=== PATIENT | male | born 1960 | race Caucasian/White ===

== ENCOUNTER 2020-07-06 12:20 | Inpatient (IN) | payer OTHER ==
[~2020-07-06] VITALS: Ht 172.7 cm; Wt 134.3 kg
[~2020-07-06 12:20] MED LIST: IBUP400 PO; METO25 PO
[2020-07-06 12:46] LABS: BASOPHILS ABSOLUTE AUTO 0.04 K/mm3 (0.00-0.23); BASOPHILS PERCENT AUTO 1 % (0-2); EOSINOPHILS ABSOLUTE AUTO 0.02 K/mm3 (0.00-0.68); EOSINOPHILS PERCENT AUTO 0 % (0-6); Hematocrit 46.7 % (37.0-53.0); Hemoglobin 15.3 g/dL (13.5-17.5); IMMATURE GRAN ABSOLUTE AUTO 0.03 K/mm3 (0.00-0.10); IMMATURE GRAN PERCENT AUTO 0 % (0-1); LYMPHOCYTES ABSOLUTE AUTO 1.29 K/mm3 (0.84-5.20); LYMPHOCYTES PERCENT AUTO 16 % (21-46); MONOCYTES ABSOLUTE AUTO 0.83 K/mm3 (0.16-1.47); MONOCYTES PERCENT AUTO 10 % (4-13); Mean Corpuscular HGB 30.9 pg (26.0-34.0); Mean Corpuscular HGB Conc 32.8 g/dL (31.5-36.5); Mean Corpuscular Volume 94 fL (80-100); Mean Platelet Volume 10.7 fL (9.1-12.4); NEUTROPHILS ABSOLUTE AUTO 6.13 K/mm3 (1.96-9.15); NEUTROPHILS PERCENT AUTO 73 % (41-73); Platelet Count 149 K/mm3 (150-400); RDW Coefficient Variation 12.5 % (11.7-14.2); RDW Standard Deviation 43.5 fL (35.1-46.3); Red Blood Cell Count 4.95 M/mm3 (4.30-5.90); White Blood Cell Count 8.34 K/mm3 (4.00-11.30)
[2020-07-06 13:07] LABS: Alanine Aminotransfer (ALT/SGP 37 U/L (12-78); Albumin, Blood 3.2 g/dL (3.4-5.0); Albumin/Globulin Ratio 0.7 (0.8-1.8); Alk Phos 73 U/L (50-136); Anion Gap 3 mmol/L (6-16); Aspartate Aminotrans (AST/SGOT 41 U/L (12-37); Bilirubin, Total 1.4 mg/dL (0.1-1.0); Blood Urea Nitrogen 10 mg/dL (8-24); Bun/Creatinine Ratio 12.3 (12.0-20.0); CO2, Blood 32 mmol/L (21-32); Calcium, Blood 9.3 mg/dL (8.5-10.1); Chloride, Blood 100 mmol/L (98-108); Creatinine, Blood 0.81 mg/dL (0.60-1.20); Globulin, Blood 4.4 g/dL (2.2-4.0); Glomerular Filtration Rate >60 (60-); Glucose, Blood 92 mg/dL (70-99); Potassium, Blood 3.9 mmol/L (3.5-5.5); Sodium, Blood 135 mmol/L (136-145); Total Protein, Blood 7.6 g/dL (6.4-8.2)
[2020-07-06 13:57] LABS: Source, Urine Clean Catch
[2020-07-06] MEDS ORDERED: ALLO100 PO (14:07)
[2020-07-06] MEDS ORDERED: Vitamin D2000 UNIT PO (14:09)
[2020-07-06] MEDS ORDERED: AMLO10 PO (14:09)
[2020-07-06] MEDS ORDERED: TAMS.4ER PO (14:09)
[2020-07-06] MEDS ORDERED: TIZA4 PO (14:10)
[2020-07-06] MEDS ORDERED: LISI20 PO (14:10)
[2020-07-06] MEDS ORDERED: FURO20 PO (14:11)
[2020-07-06] MEDS ORDERED: POTA10T PO (14:11)
[2020-07-06 14:12] LABS: Blood, Urine Neg (Neg); Glucose Qualitative, Urine Neg (Neg); Ketones, Urine Neg (Neg); Leukocyte Esterase, Urine 1+ (Neg); Nitrite, Urine Neg (Neg); Protein, Urine 1+ (Neg); Specific Gravity, Urine 1.015 (1.003-1.022); Urobilinogen, Urine 4+ (Normal); pH, Urine 6.5 (5.0-8.0)
[2020-07-06 14:21] LABS: Appearance, Urine Clear (Clear); Bilirubin, Urine 1+ (Neg); Color, Urine Amber (P-Yellow)
[2020-07-06 14:22] LABS: Bacteria Few /hpf; Mucus Light (0-Heavy); Red Blood Cells, Urine 0-2 /hpf (0-2); Squamous Epithelial Cells Few /hpf (Few)
[2020-07-06 16:30] LABS: International Normalized Ratio 1.08; Prothrombin Time Results 11.5 Sec (9.7-11.5)
[2020-07-06] MEDS ORDERED: METOPROLOL SUCC25 MG PO (17:36)
[2020-07-06] MEDS ORDERED: FUROSEMIDE40 MG PO (17:37)
[2020-07-06 17:53] LABS: Body Fluid WBC Count 420 /mm3 (0-999)
[2020-07-06 19:03] LABS: RBC Count, Body Fluid 31 /mm3 (0-0)
[2020-07-06 19:04] LABS: Appearance, Body Fluid Clear (Clear); Color, Body Fluid Yellow (None-Yellow)
[2020-07-06 19:23] LABS: Total Cell Count, Body Fluid 100
[2020-07-07 05:13] LABS: Alanine Aminotransfer (ALT/SGP 36 U/L (12-78); Albumin/Globulin Ratio 0.8 (0.8-1.8); Alk Phos 61 U/L (50-136); Anion Gap 3 mmol/L (6-16); Aspartate Aminotrans (AST/SGOT 34 U/L (12-37); Bilirubin, Total 1.2 mg/dL (0.1-1.0); Blood Urea Nitrogen 9 mg/dL (8-24); Bun/Creatinine Ratio 12.7 (12.0-20.0); CO2, Blood 30 mmol/L (21-32); Chloride, Blood 101 mmol/L (98-108); Creatinine, Blood 0.71 mg/dL (0.60-1.20); Globulin, Blood 3.7 g/dL (2.2-4.0); Glomerular Filtration Rate >60 (60-); Glucose, Blood 129 mg/dL (70-99); Potassium, Blood 3.9 mmol/L (3.5-5.5); Sodium, Blood 134 mmol/L (136-145); Total Protein, Blood 6.7 g/dL (6.4-8.2)
--- NOTE | 2020-07-07 06:11 | NUR ---
SHIFT SUMMARY PT ARRIVED TO UNIT FROM ED VIA STRETCHER @ 1935. TRANSFERED FROM STRETCHER TO BATHROOM SBA. MEDICATED X2 FOR PAIN. PT SLEPT T/O NIGHT WITH NO ACUTE CHANGES. EXPRESSES SOME ANXIOUSNESS FOR PENDING PROCEDURE. A&O X4. USES CALL LIGHT APPROPRIATELY. PT IS CURRENTLY LAYING IN BED, EYES CLOSED, EVEN AND UNLABORED RESPIRATIONS. NO APPARENT DISREESS OR NEEDS AT THIS TIME. CALL LIGHT AND PERSONAL ITEMS WITHIN REACH. BED IN LOWERED POSITION, BED ALARM ON. WILL CONTINUE TO MONITOR UNTIL REPORT GIVEN TO DAY RN.
[2020-07-07 06:49] LABS: BASOPHILS ABSOLUTE AUTO 0.03 K/mm3 (0.00-0.23); BASOPHILS PERCENT AUTO 1 % (0-2); EOSINOPHILS ABSOLUTE AUTO 0.02 K/mm3 (0.00-0.68); EOSINOPHILS PERCENT AUTO 0 % (0-6); Hemoglobin 14.7 g/dL (13.5-17.5); IMMATURE GRAN ABSOLUTE AUTO 0.02 K/mm3 (0.00-0.10); IMMATURE GRAN PERCENT AUTO 0 % (0-1); LYMPHOCYTES ABSOLUTE AUTO 1.03 K/mm3 (0.84-5.20); LYMPHOCYTES PERCENT AUTO 16 % (21-46); MONOCYTES ABSOLUTE AUTO 0.53 K/mm3 (0.16-1.47); MONOCYTES PERCENT AUTO 8 % (4-13); Mean Corpuscular HGB 30.4 pg (26.0-34.0); Mean Corpuscular HGB Conc 32.7 g/dL (31.5-36.5); Mean Corpuscular Volume 93 fL (80-100); Mean Platelet Volume 10.9 fL (9.1-12.4); NEUTROPHILS ABSOLUTE AUTO 4.69 K/mm3 (1.96-9.15); NEUTROPHILS PERCENT AUTO 74 % (41-73); Platelet Count 121 K/mm3 (150-400); RDW Coefficient Variation 12.5 % (11.7-14.2); RDW Standard Deviation 43.3 fL (35.1-46.3); Red Blood Cell Count 4.83 M/mm3 (4.30-5.90); White Blood Cell Count 6.32 K/mm3 (4.00-11.30)
[2020-07-07 15:56] LABS: Automated BF WBC Count 0.487 K/mm3 (0-999); Body Fluid WBC Count 487 /mm3 (0-999)
[2020-07-07 16:24] LABS: Appearance, Body Fluid Clear (Clear); Color, Body Fluid Yellow (None-Yellow); RBC Count, Body Fluid 73 /mm3 (0-0)
[2020-07-07 16:31] LABS: Total Cell Count, Body Fluid 100
--- NOTE | 2020-07-07 18:07 | NUR ---
Shift Summary A/Ox4, pleasant and cooperative with care. Up in room independently, calls for needs appropriately. Had paracentesis today for which 4L was removed, bodily fluid sent in for culture. Heparin has been held today and will be held again tomorrow for another scheduled paracentesis. Medicated for lower back/nerve pain x 2 with excellent relief. K-pad for hot therapy also applied to back. No other complaints or concerns, will continue to monitor.
--- NOTE | 2020-07-08 04:06 | NUR ---
SHIFT SUMMARY ASSUMED CARE OF PT AT 1900. PT C/O PAIN IN HIS BACK AND ABD, MEDICATED PER EMAR. PT THINKS THAT HIS DOSE OF FLEXERAL SHOULD BE INCREASED BECAUSE HE SAID HE TAKES 10MG AT HOME. ABD IS DISTENDED AND PT STATES IT HURTS. PT HAS HAD TWO EPISODES OF DIARRHEA, PT THINKS IT COULD BE FROM THE METFORMIN. PT ALSO C/O DYSPNEA DUE TO ABD SIZE. THERE IS DISCOLORATION AROUND THE PTS UMBILICAL, PT STATES HAS A HERNIA BUT IT IS IMPROVING AFTER THE PARACENTESIS. PT HAS TWO PUNCTURE DEJESUS FROM PREVIOUS PARACENTENSIS ON THE R SIDE OF HIS ABD. NO ACUTE EVENTS DURING THE NIHGT. PT SLEPT MOST OF THE NIGHT. CALL LIGHT IN REACH, BED IN LOWEST POSTION.
[2020-07-08] MEDS ORDERED: METF500 PO (12:59)
[2020-07-08] MEDS ORDERED: SPIR50 PO (13:00)
--- NOTE | 2020-07-08 17:44 | NUR ---
Discharge Summary A/Ox4, paracentesis completed today with 4L removed and albumin given prior to discharge. Reviewed discharge paperwork with patient, no questions at this time. Meds faxed to preferred pharmacy. Personal belongings sent home with patient. Escorted by CAR [employer]PER via w/c, personal transportation home. IV removed, WNL. Medicated for pain per emar with good relief, tolerated paracentesis well today.
== END 2020-07-08 17:47 | disposition home or self-care (01) | DRG 433 ==
LOC: ER 12:20 → MEDS 12:21 → ENPENDDIS 07-08 14:11 → MEDS 07-08 17:47
PROVIDERS: Emergency Medicine; Internal Medicine; ADMIT Internal Medicine
PROC: 0W9G3ZZ Drainage of Peritoneal Cavity, Percutaneous Approach (ICD-10-PCS; principal; 2020-07-08)
DX: K74.60 Unspecified cirrhosis of liver (principal); R18.8 Other ascites; I10 Essential (primary) hypertension; R06.00 Dyspnea, unspecified; M10.9 Gout, unspecified; F32.9 Major depressive disorder, single episode, unspecified; E11.9 Type 2 diabetes mellitus without complications; Z87.891 Personal history of nicotine dependence; K42.9 Umbilical hernia without obstruction or gangrene
CPT/HCPCS: 36415; 49083; 71045; 74177; 80053; 81001; 82947; 83690; 83880; 84484; 85025; 85610; 87070; 87075; 87086; 87205; 89051; 93005; 93010; 96365; 96372; 96375; 96376; 99284-25; A9270-GY; G0378; J0696; J1170; J1644; J3010; J7050; P9046; Q9967

== ENCOUNTER 2020-07-21 13:38 | Day surgery (SDC) | payer OTHER ==
[~2020-07-21 13:38] MED LIST changes: +ALLO100 PO; +AMLO10 PO; +FURO20 PO; +FUROSEMIDE40 MG PO; +LISI20 PO; +METF500 PO; +METOPROLOL SUCC25 MG PO; +POTA10T PO; +SPIR50 PO; +TAMS.4ER PO; +TIZA4 PO; +Vitamin D2000 UNIT PO
== END 2020-07-21 22:48 | disposition home or self-care (01) ==
LOC: US 13:38
DX: K70.31 Alcoholic cirrhosis of liver with ascites (principal)
CPT/HCPCS: 49083

== ENCOUNTER 2020-09-02 09:45 | Day surgery (SDC) | payer OTHER ==
[~2020-09-02] VITALS: Ht 172.7 cm; Wt 115.7 kg
[~2020-09-02 09:45] MED LIST changes: +METFORMIN HCL500 M2 PO
== END 2020-09-02 13:13 | disposition home or self-care (01) ==
LOC: ORSCSDS 09:45
PROVIDERS: Internal Medicine Gastroenterology
PROC: 0DBP8ZX Excision of Rectum, Via Natural or Artificial Opening Endoscopic, Diagnostic (ICD-10-PCS; principal; 2020-09-02 11:00)
PROC: 0DBN8ZX Excision of Sigmoid Colon, Via Natural or Artificial Opening Endoscopic, Diagnostic (ICD-10-PCS; principal; 2020-09-02 11:00)
PROC: 0DJ08ZZ Inspection of Upper Intestinal Tract, Via Natural or Artificial Opening Endoscopic (ICD-10-PCS; principal; 2020-09-02 11:00)
DX: Z12.11 Encounter for screening for malignant neoplasm of colon (principal); D12.5 Benign neoplasm of sigmoid colon; K62.1 Rectal polyp; Z13.810 Encounter for screening for upper gastrointestinal disorder; K74.60 Unspecified cirrhosis of liver; K76.6 Portal hypertension; K31.89 Other diseases of stomach and duodenum; K57.30 Diverticulosis of large intestine without perforation or abscess without bleeding; K64.8 Other hemorrhoids; I10 Essential (primary) hypertension; G47.33 Obstructive sleep apnea (adult) (pediatric); E11.9 Type 2 diabetes mellitus without complications; E66.01 Morbid (severe) obesity due to excess calories; Z68.38 Body mass index [BMI] 38.0-38.9, adult; Z79.899 Other long term (current) drug therapy
CPT/HCPCS: 82947; 88305; J2405; J2704; J7120

== ENCOUNTER 2021-01-08 08:32 | Day surgery (SDC) | payer OTHER ==
[~2021-01-08 08:32] MED LIST changes: +DOCU100 PO; +NADO20 PO; +OXYC5 PO; +[UNRECOGNIZED DRUG - OTHER] PO
== END 2021-01-08 22:57 | disposition home or self-care (01) ==
LOC: US 08:32 → EDSTATUS 09:00 → US 22:57
DX: K70.31 Alcoholic cirrhosis of liver with ascites (principal)
CPT/HCPCS: 49083

== ENCOUNTER 2021-04-05 09:51 | Emergency (ER) | payer OTHER ==
[~2021-04-05] VITALS: Ht 172.7 cm; Wt 93.4 kg
[2021-04-05] MEDS ORDERED: NYST237S MT (11:55)
== END 2021-04-05 13:07 | disposition home or self-care (01) ==
LOC: ER 09:51
DX: B37.0 Candidal stomatitis (principal); Z79.899 Other long term (current) drug therapy
CPT/HCPCS: 87081; 87430; 99284

== ENCOUNTER 2021-11-03 15:00 | Day surgery (SDC) | payer OTHER ==
[~2021-11-03 15:00] MED LIST changes: +NYST237S MT
== END 2021-11-03 17:00 | disposition home or self-care (01) ==
LOC: ATC 15:00
DX: K70.31 Alcoholic cirrhosis of liver with ascites (principal)
CPT/HCPCS: 49083; P9046

== ENCOUNTER 2021-12-22 14:29 | Day surgery (SDC) | payer OTHER | END 2021-12-22 18:46 | disposition home or self-care (01) | LOC: ATC 14:29 → US 14:29 → EDSTATUS 15:00 → ATC 18:46 | DX: K70.31 Alcoholic cirrhosis of liver with ascites (principal) | CPT/HCPCS: 49083; P9046 ==

== ENCOUNTER 2022-02-07 13:38 | Day surgery (SDC) | payer OTHER | END 2022-02-07 17:11 | disposition home or self-care (01) | LOC: US 13:38 → ATC 13:38 → US 14:00 → ATC 17:11 | DX: K70.31 Alcoholic cirrhosis of liver with ascites (principal) | CPT/HCPCS: 49083; P9041; P9046 ==

== ENCOUNTER 2022-03-21 08:32 | Day surgery (SDC) | payer OTHER | END 2022-03-21 12:40 | disposition home or self-care (01) | LOC: US 08:32 → ATC 08:32 → US 09:00 → ATC 12:40 | DX: K70.31 Alcoholic cirrhosis of liver with ascites (principal) | CPT/HCPCS: 49083; 96365; 96366; P9046 ==

== ENCOUNTER 2022-04-05 08:36 | Day surgery (SDC) | payer OTHER | END 2022-04-05 12:23 | disposition home or self-care (01) | LOC: ATC 08:36 → US 08:36 → ATC 12:23 | DX: K70.31 Alcoholic cirrhosis of liver with ascites (principal); E66.01 Morbid (severe) obesity due to excess calories; F10.20 Alcohol dependence, uncomplicated; K76.6 Portal hypertension; K31.89 Other diseases of stomach and duodenum; G47.33 Obstructive sleep apnea (adult) (pediatric); Z86.16 Personal history of COVID-19; Z68.35 Body mass index [BMI] 35.0-35.9, adult | CPT/HCPCS: 49083; 96365; 96366; P9046 ==

== ENCOUNTER 2022-04-19 08:43 | Day surgery (SDC) | payer OTHER | END 2022-04-19 12:21 | disposition home or self-care (01) | LOC: US 08:43 → ATC 08:43 → US 09:00 → ATC 12:21 | DX: K70.31 Alcoholic cirrhosis of liver with ascites (principal); E66.01 Morbid (severe) obesity due to excess calories; K31.89 Other diseases of stomach and duodenum; K76.6 Portal hypertension; G47.33 Obstructive sleep apnea (adult) (pediatric); Z68.37 Body mass index [BMI] 37.0-37.9, adult; Z86.16 Personal history of COVID-19 | CPT/HCPCS: 49083; 96365; P9046 ==

== ENCOUNTER 2022-05-03 13:57 | Day surgery (SDC) | payer OTHER | END 2022-05-03 17:47 | disposition home or self-care (01) | LOC: ATC 13:57 → US 13:57 → ATC 17:47 | DX: K70.31 Alcoholic cirrhosis of liver with ascites (principal); E66.01 Morbid (severe) obesity due to excess calories; Z68.37 Body mass index [BMI] 37.0-37.9, adult; G47.33 Obstructive sleep apnea (adult) (pediatric) | CPT/HCPCS: 49083; 96365; P9047 ==

== ENCOUNTER 2022-05-17 13:30 | Day surgery (SDC) | payer OTHER | END 2022-05-17 17:11 | disposition home or self-care (01) | LOC: ATC 13:30 → US 13:30 → ATC 17:11 | DX: K70.31 Alcoholic cirrhosis of liver with ascites (principal) | CPT/HCPCS: 49083; 96365; P9047 ==

== ENCOUNTER 2022-06-15 07:38 | Day surgery (SDC) | payer OTHER | END 2022-06-15 23:39 | disposition home or self-care (01) | LOC: ATC 07:38 | DX: K70.31 Alcoholic cirrhosis of liver with ascites (principal); E66.01 Morbid (severe) obesity due to excess calories; Z68.37 Body mass index [BMI] 37.0-37.9, adult; F10.20 Alcohol dependence, uncomplicated; K76.6 Portal hypertension; K31.89 Other diseases of stomach and duodenum; I86.4 Gastric varices; I86.8 Varicose veins of other specified sites; G47.33 Obstructive sleep apnea (adult) (pediatric); Z86.16 Personal history of COVID-19 | CPT/HCPCS: 96365; P9047 ==

== ENCOUNTER 2022-06-15 13:47 | Day surgery (SDC) | payer OTHER | END 2022-06-15 17:10 | disposition home or self-care (01) | LOC: US 13:47 → ATC 13:47 → US 14:00 → ATC 17:10 | DX: K70.31 Alcoholic cirrhosis of liver with ascites (principal); K21.9 Gastro-esophageal reflux disease without esophagitis; E66.9 Obesity, unspecified; Z86.16 Personal history of COVID-19 | CPT/HCPCS: 49083 ==

== ENCOUNTER 2022-07-13 13:34 | Day surgery (SDC) | payer OTHER | END 2022-07-13 17:03 | disposition home or self-care (01) | LOC: US 13:34 → ATC 13:34 → US 14:00 → ATC 17:03 | DX: K70.31 Alcoholic cirrhosis of liver with ascites (principal); F10.20 Alcohol dependence, uncomplicated; E66.01 Morbid (severe) obesity due to excess calories; Z68.35 Body mass index [BMI] 35.0-35.9, adult | CPT/HCPCS: 49083; 96365; P9047 ==

== ENCOUNTER 2022-08-24 13:36 | Day surgery (SDC) | payer OTHER | END 2022-08-24 18:26 | disposition home or self-care (01) | LOC: ATC 13:36 → US 13:36 → ATC 18:26 | DX: K70.31 Alcoholic cirrhosis of liver with ascites (principal); Z87.891 Personal history of nicotine dependence; E66.01 Morbid (severe) obesity due to excess calories; Z68.35 Body mass index [BMI] 35.0-35.9, adult | CPT/HCPCS: 49083; P9047 ==

== ENCOUNTER 2022-09-07 13:30 | Day surgery (SDC) | payer OTHER | END 2022-09-07 16:45 | disposition home or self-care (01) | LOC: US 13:30 → ATC 13:30 → US 14:00 → ATC 16:45 | DX: K70.31 Alcoholic cirrhosis of liver with ascites (principal) | CPT/HCPCS: 49083; 96365; P9047 ==

== ENCOUNTER 2022-09-21 08:37 | Day surgery (SDC) | payer OTHER | END 2022-09-21 12:21 | disposition home or self-care (01) | LOC: ATC 08:37 → US 08:37 → ATC 12:21 | DX: K70.31 Alcoholic cirrhosis of liver with ascites (principal); Z86.16 Personal history of COVID-19; Z87.891 Personal history of nicotine dependence | CPT/HCPCS: 49083; 96365; 96366; P9047 ==

== ENCOUNTER 2022-10-05 13:32 | Day surgery (SDC) | payer OTHER | END 2022-10-05 16:28 | disposition home or self-care (01) | LOC: US 13:32 → ATC 13:32 → US 14:00 → ATC 16:28 | DX: K70.31 Alcoholic cirrhosis of liver with ascites (principal); Z87.891 Personal history of nicotine dependence | CPT/HCPCS: 49083; 96365; P9047 ==

== ENCOUNTER 2022-10-19 13:32 | Day surgery (SDC) | payer OTHER | END 2022-10-19 16:20 | disposition home or self-care (01) | LOC: ATC 13:32 → US 13:32 → ATC 16:20 | DX: K70.31 Alcoholic cirrhosis of liver with ascites (principal); E66.01 Morbid (severe) obesity due to excess calories; Z87.891 Personal history of nicotine dependence | CPT/HCPCS: 49083; 96365; P9047 ==

== ENCOUNTER 2022-10-20 09:28 | Day surgery (SDC) | payer OTHER ==
[~2022-10-20] VITALS: Ht 172.7 cm; Wt 110.0 kg
== END 2022-10-20 11:10 | disposition home or self-care (01) ==
LOC: ORSCSDS 09:28
PROVIDERS: Internal Medicine Gastroenterology
PROC: 0DJ08ZZ Inspection of Upper Intestinal Tract, Via Natural or Artificial Opening Endoscopic (ICD-10-PCS; principal; 2022-10-20 11:45)
DX: K70.31 Alcoholic cirrhosis of liver with ascites (principal); K76.6 Portal hypertension; I86.4 Gastric varices; K31.89 Other diseases of stomach and duodenum; E11.9 Type 2 diabetes mellitus without complications; G47.33 Obstructive sleep apnea (adult) (pediatric); K70.0 Alcoholic fatty liver; E66.01 Morbid (severe) obesity due to excess calories; Z68.37 Body mass index [BMI] 37.0-37.9, adult; Z86.16 Personal history of COVID-19; Z87.891 Personal history of nicotine dependence; Z79.84 Long term (current) use of oral hypoglycemic drugs; Z79.899 Other long term (current) drug therapy
CPT/HCPCS: 82947; J2704; J7120

== ENCOUNTER 2022-11-30 08:27 | Day surgery (SDC) | payer OTHER | END 2022-11-30 22:48 | disposition home or self-care (01) | LOC: US 08:27 | DX: K70.31 Alcoholic cirrhosis of liver with ascites (principal) | CPT/HCPCS: 49083; P9047 ==

== ENCOUNTER 2022-12-06 17:27 | Emergency (ER) | payer OTHER ==
[~2022-12-06] VITALS: Ht 172.7 cm; Wt 115.2 kg
[2022-12-06 18:08] LABS: BASOPHILS ABSOLUTE AUTO 0.04 K/mm3 (0.00-0.23); BASOPHILS PERCENT AUTO 1 % (0-2); EOSINOPHILS ABSOLUTE AUTO 0.16 K/mm3 (0.00-0.68); EOSINOPHILS PERCENT AUTO 3 % (0-6); Hematocrit 40.7 % (37.0-53.0); Hemoglobin 14.2 g/dL (13.5-17.5); IMMATURE GRAN ABSOLUTE AUTO 0.02 K/mm3 (0.00-0.10); IMMATURE GRAN PERCENT AUTO 0 % (0-1); LYMPHOCYTES ABSOLUTE AUTO 0.64 K/mm3 (0.84-5.20); LYMPHOCYTES PERCENT AUTO 13 % (21-46); MONOCYTES ABSOLUTE AUTO 0.48 K/mm3 (0.16-1.47); MONOCYTES PERCENT AUTO 10 % (4-13); Mean Corpuscular HGB 31.5 pg (26.0-34.0); Mean Corpuscular HGB Conc 34.9 g/dL (31.5-36.5); Mean Corpuscular Volume 90 fL (80-100); Mean Platelet Volume 9.6 fL (9.1-12.4); NEUTROPHILS ABSOLUTE AUTO 3.71 K/mm3 (1.96-9.15); NEUTROPHILS PERCENT AUTO 73 % (41-73); Platelet Count 126 K/mm3 (150-400); RDW Coefficient Variation 13.3 % (11.7-14.2); RDW Standard Deviation 44.4 fL (35.1-46.3); Red Blood Cell Count 4.51 M/mm3 (4.30-5.90); White Blood Cell Count 5.05 K/mm3 (4.00-11.30)
[2022-12-06 18:50] LABS: Albumin/Globulin Ratio 0.8 (0.8-1.8); Bilirubin, Total 0.9 mg/dL (0.1-1.0); Bun/Creatinine Ratio 20.5 (12.0-20.0); Calcium, Blood 8.8 mg/dL (8.5-10.1); Creatinine, Blood 1.17 mg/dL (0.60-1.20); Globulin, Blood 3.6 g/dL (2.2-4.0); Potassium, Blood 3.8 mmol/L (3.5-5.5); Total Protein, Blood 6.6 g/dL (6.4-8.2)
== END 2022-12-06 23:35 | disposition home or self-care (01) ==
LOC: ER 17:27
PROVIDERS: Student in an Organized Health Care Education/Training Program
DX: K42.9 Umbilical hernia without obstruction or gangrene (principal); R18.8 Other ascites; M10.9 Gout, unspecified; E11.9 Type 2 diabetes mellitus without complications; I10 Essential (primary) hypertension; Z79.899 Other long term (current) drug therapy
CPT/HCPCS: 74177; 80053; 85025; 99284-25; Q9967

== ENCOUNTER 2022-12-13 08:30 | Day surgery (SDC) | payer OTHER | END 2022-12-13 22:45 | disposition home or self-care (01) | LOC: US 08:30 | DX: K70.31 Alcoholic cirrhosis of liver with ascites (principal) | CPT/HCPCS: 49083; 96365; 96366; P9047 ==

== ENCOUNTER 2022-12-29 13:34 | Day surgery (SDC) | payer OTHER | END 2022-12-29 22:35 | disposition home or self-care (01) | LOC: US 13:34 | DX: K70.31 Alcoholic cirrhosis of liver with ascites (principal) | CPT/HCPCS: 76705 ==

== ENCOUNTER 2023-01-11 08:30 | Day surgery (SDC) | payer OTHER | END 2023-01-11 22:53 | disposition home or self-care (01) | LOC: US 08:30 | DX: K70.31 Alcoholic cirrhosis of liver with ascites (principal) | CPT/HCPCS: 76705 ==

== ENCOUNTER 2023-02-08 08:31 | Day surgery (SDC) | payer OTHER | END 2023-02-08 23:05 | disposition home or self-care (01) | LOC: US 08:31 | DX: K70.31 Alcoholic cirrhosis of liver with ascites (principal) | CPT/HCPCS: 49083 ==

== ENCOUNTER 2023-08-15 07:00 | Day surgery (SDC) | payer OTHER ==
[2023-08-15] VITALS (16 sets, daily range): BP systolic 78–129; BP diastolic 43–73
[~2023-08-15] VITALS: Ht 172.7 cm; Wt 121.0 kg
--- NOTE | 2023-08-15 08:03 | NUR ---
PATIENT STATES HE LEFT HIS DENTURES AT HOME. GLASSES TO BE BROUGHT TO PACU DURING SURGERY FOR SAFE KEEPING.
--- NOTE | 2023-08-15 08:16 | NUR ---
ACETAMINOPHEN HELD DUE TO HX LIVER CHIRROSIS.
--- NOTE | 2023-08-15 10:03 | NUR ---
08/15/23 1003 Laure Walters SPINAL NERVE BLOCK COMPLETED BY DR FISHER UPON ENTRY TO OR. PT EXPRESSED FEELINGS OF NAUSEA. COOL CLOTH APPLIED. PT TOLERATED WELL OTHER THAN BRIEF NAUSEA.
--- NOTE | 2023-08-15 16:08 | NUR ---
SHIFT SUMMARY PT ARRIVED TO UNIT AT APROX 1210 FROM PACU. SATYA WRAP TO L KNEE C/D/I. PT IS ABLE TO WIGGLE TOES AND HAD FEELING TO BLE. PT QUICKLY HAD FULL SENSATION TO BLE, MEDICATED WITH 10MG ROXICODONE AT APROX 1308. PT WORKED WITH PT AND VOIDED W/O DIFFICULTY. TOLRERATING REGULAR DIET WITH NO N/V.
[2023-08-16 03:57] VITALS: BP 107/68
[2023-08-16 04:51] LABS: BASOPHILS ABSOLUTE AUTO 0.01 K/mm3 (0.00-0.23); BASOPHILS PERCENT AUTO 0 % (0-2); EOSINOPHILS PERCENT AUTO 0 % (0-6); Hematocrit 36.2 % (37.0-53.0); Hemoglobin 12.5 g/dL (13.5-17.5); IMMATURE GRAN ABSOLUTE AUTO 0.03 K/mm3 (0.00-0.10); IMMATURE GRAN PERCENT AUTO 0 % (0-1); LYMPHOCYTES ABSOLUTE AUTO 0.37 K/mm3 (0.84-5.20); LYMPHOCYTES PERCENT AUTO 4 % (21-46); MONOCYTES ABSOLUTE AUTO 0.51 K/mm3 (0.16-1.47); MONOCYTES PERCENT AUTO 5 % (4-13); Mean Corpuscular HGB 31.3 pg (26.0-34.0); Mean Corpuscular HGB Conc 34.5 g/dL (31.5-36.5); Mean Corpuscular Volume 91 fL (80-100); Mean Platelet Volume 9.9 fL (9.1-12.4); NEUTROPHILS ABSOLUTE AUTO 8.57 K/mm3 (1.96-9.15); NEUTROPHILS PERCENT AUTO 90 % (41-73); Platelet Count 126 K/mm3 (150-400); RDW Standard Deviation 42.9 fL (35.1-46.3); Red Blood Cell Count 3.99 M/mm3 (4.30-5.90); White Blood Cell Count 9.49 K/mm3 (4.00-11.30)
--- NOTE | 2023-08-16 05:09 | NUR ---
SHIFT SUMMARY NO ACUTE CHANGES TO REPORT OVERNIGHT. PT POD 0 L TOTAL KNEE. PT HAS BEEN UP AND AMBULATING AND IS VOIDING, HE IS TOLERATING PO INTAKE. PAIN HAS BEEN WELL MANAGED PER EMAR. POST OP VITALS ARE STABLE. PLAN IS FOR DISCHARGE TODAY.
[2023-08-16 05:14] LABS: Bun/Creatinine Ratio 26.2 (12.0-20.0); Calcium, Blood 9.2 mg/dL (8.5-10.1); Creatinine, Blood 1.03 mg/dL (0.60-1.20); Potassium, Blood 4.7 mmol/L (3.5-5.5)
[2023-08-16 06:13] LABS: BASOPHILS PERCENT MAN 0 % (0-2); EOSINOPHILS PERCENT MAN 0 % (0-6); LYMPHOCYTES ABSOLUTE MAN 0.37 K/mm3 (0.84-5.20); LYMPHOCYTES PERCENT MAN 4 % (21-46); MONOCYTES ABSOLUTE MAN 0.28 K/mm3 (0.16-1.47); MONOCYTES PERCENT MAN 3 % (4-13); NEUTROPHILS ABSOLUTE MAN 8.82 K/mm3 (1.96-9.15); SEG NEUTROPHILS PERCENT MAN 93 % (41-73); TOTAL CELLS COUNTED 100
[2023-08-16 07:43] VITALS: BP 105/56
[2023-08-16] MEDS ORDERED: ELIQUIS2.5 MG PO (09:02)
[2023-08-16] MEDS ORDERED: OXYC5 PO (09:02)
--- NOTE | 2023-08-16 10:58 | NUR ---
DISCHARGE NOTE: PATIENT WAS EDUCATED ON DISCHARGE INSTRUCTIONS. HE VERBALIZED UNDERSTANDING OF INSTRUCTIONS AND HAD NO FURTHER QUESTIONS AT THIS TIME. HARD PERSCRIPTIONS WERE PLACED IN DISCHARGE FOLDER. IV WAS TAKEN OUT AND WNL. PAIN IS MANAGED WITH PO PAIN MEDS. HIS LEFT KNEE HAS AN SATYA WRAP AND AQUACEL THAT ARE C/D/I. PATIENT DENIES NUMBNESS OR TINGLING THROUGHOUT ALL EXTREMITIES. HE IS A SBA WITH FWW AND GAIT BELT. PATIENT IS DRESSED AND HAS PERSONAL ITEMS IN THE ROOM GATHERED. PATIENT IS AWAITING FOR HIS RIDE THAT WILL COME PICK HIM UP AT 1200 TODAY.
--- NOTE | 2023-08-16 11:44 | NUR ---
PATIENT IS BEING WHEELCHAIRED OUT TO HIS RIDE TO BE TAKEN HOME.
== END 2023-08-16 11:46 | disposition home or self-care (01) ==
LOC: ORSCMMR 07:00 → SURS 12:04 → ORD 12:30 → ORSCMMR 12:30 → ORD 13:30 → SURS 08-16 11:46 → ORSCMMR 08-16 11:46
PROVIDERS: Orthopaedic Surgery
PROC: 0SRD0JA Replacement of Left Knee Joint with Synthetic Substitute, Uncemented, Open Approach (ICD-10-PCS; principal; 2023-08-15 08:15)
DX: M17.12 Unilateral primary osteoarthritis, left knee (principal); E66.01 Morbid (severe) obesity due to excess calories; Z68.41 Body mass index [BMI] 40.0-44.9, adult; K74.60 Unspecified cirrhosis of liver; G47.33 Obstructive sleep apnea (adult) (pediatric); J45.909 Unspecified asthma, uncomplicated; E11.9 Type 2 diabetes mellitus without complications; Z79.899 Other long term (current) drug therapy
CPT/HCPCS: 73560-LT; 80048; 85025; 97110; 97116; 97161; 97530; A9270; C1713; C1776; J0171; J0690; J0735; J1100; J1885; J2250; J2371; J2405; J2704; J2765; J2795; J3010; J7120